=== PATIENT | female | born 1990 ===

== ENCOUNTER 2025-05-15 00:27 | Observation (INO) | payer OTHER, SELFPAY ==
[2025-05-15 00:46] VITALS: BP 130/67; PULSE 85; RESP 16; TEMP 36.2; O2SAT 97; BMI 32.9
--- NOTE | 2025-05-15 01:00 | DI.US.S_ITS ---
PROCEDURE: US ABDOMEN LIMITED INDICATIONS: EPIGASTRIC AND RIGHT UPPER QUADRANT POSTPRANDIAL PAIN TECHNIQUE: Real-time focused scanning was performed of the abdomen, with image documentation. COMPARISON: None. FINDINGS: Liver measures 14 centimeters. Gallstones are present. Non mobile stone seen at the neck. Sonographic Lopez sign is present. CBD is not well seen. IMPRESSION: Cholelithiasis with sonographic Lopez sign suspicious for cholecystitis. Agree with preliminary report. Dictated by: Ashok Gallegos M.D. on 05/15/2025 at 8:14 Approved by: Ashok Gallegos M.D. on 05/15/2025 at 8:15
--- NOTE | 2025-05-15 01:01 | ED.ABDPAIN ---
HPI - Abdominal Pain General Chief Complaint: Abdominal Pain Stated Complaint: Severe Stomach Acid, pain Time Seen by Provider: 05/15/25 01:00 Source: patient Mode of arrival: Ambulatory Limitations: language barrier (Logistic Manager, ASL) History of Present Illness HPI narrative: 34-year-old female no reported medical issues patient is deaf presents with complaint of epigastric pain that started suddenly after eating food including wings. Patient has had similar symptoms in the past after eating or drinking but not as intense. Denies fevers. She has had some nausea and vomiting. She denies any diarrhea or constipation. States pain goes the epigastric area comes around the right side and towards her back. Denies any dysuria but has had some frequency no urgency. No reports of vaginal bleeding or discharge. Patient states no daily medications. No prior surgeries. No known drug allergies. No tobacco, occasional alcohol, no recreational drugs. Related Data Allergies Allergy/AdvReac Type Severity Reaction Status Date / Time No Known Drug Allergies Allergy Verified 05/15/25 00:52 Review of Systems Review of Systems ROS Unobtainable: All systems reviewed & are unremarkable except as noted in HPI and below Patient History Social History Smoking Status: Never smoker Smoking Status: Never smoker Alcohol type: beer Exam Narrative Exam Narrative: GENERAL: Alert and oriented x three, female in moderate distress HEENT: Head normocephalic, atraumatic, EOMI, pupils reactive, face symmetric, moist mucous membranes NECK: Supple, full range of motion CARDIOVASCULAR: Regular rate and rhythm without murmurs, rubs or gallops. RESPIRATORY: Breath sounds equal bilaterally, no wheezes rales or rhonchi. ABDOMEN: Soft, positive for epigastric and right upper quadrant tenderness, Normoactive bowel sounds all 4 quadrants. No guarding or rebound, rigidity, no mass, no pulsatile mass or bruit : No CVA tenderness EXTREMITIES: Normal range of motion, no clubbing or edema. Neurovascularly intact NEUROLOGICAL: Cranial nerves II through XII grossly intact. Moving all extremities SKIN: Warm, dry, no petechiae, no rashes or lesions. Initial Vital Signs Initial Vital Signs: Vital Signs Temperature 97.2 F L 05/15/25 00:46 Pulse Rate 85 05/15/25 00:46 Respiratory Rate 16 05/15/25 00:46 Blood Pressure 130/67 05/15/25 00:46 Pulse Oximetry 97 05/15/25 00:46 Oxygen Delivery Method Room Air 05/15/25 00:46 Course Orders Ordered: ED Orders 05/15/25 01:00 US abdomen limited Stat 05/15/25 01:25 Complete Blood Count AUTO DIFF Stat Comprehensive Metabolic Panel Stat Lipase Stat Sodium Chloride (Normal Saline 0.9%) 1,000 mls @ 150 mls/hr IV CONT AMALIA Last Admin: 05/15/25 04:42 Dose: 150 mls/hr Documented By: NIMA Ketorolac Tromethamine (Ketorolac 30 Mg/Ml Vial) 15 mg IV Q8H PRN PRN Reason: Pain, Moderate (4-6) Stop: 05/20/25 02:39 Morphine Sulfate (Morphine 4 Mg/Ml Inj) 4 mg IV Q6HR PRN PRN Reason: Pain, Severe (7-10) Ondansetron HCl (Ondansetron 4 Mg/2 Ml Inj) 4 mg IV NOW PRN PRN Reason: Nausea And Vomiting Last Admin: 05/15/25 01:31 Dose: 4 mg Documented By: NIMA Ondansetron HCl (Ondansetron 4 Mg Odt) 4 mg PO NOW PRN PRN Reason: Nausea And Vomiting Discontinued Medications Ceftriaxone Sodium 1,000 mg/ (Sodium Chloride) 100 mls @ 200 mls/hr IV NOW ONE Stop: 05/15/25 02:39 Last Infusion: 05/15/25 05:28 Dose: Infused Documented By: Admin: 05/15/25 04:42 Dose: 200 mls/hr Documented By: NIMA Ketorolac Tromethamine (Ketorolac 30 Mg/Ml Vial) 15 mg IV NOW ONE Stop: 05/15/25 00:55 Last Admin: 05/15/25 01:31 Dose: 15 mg Documented By: NIMA Vital Signs Vital signs: Vital Signs - 8 hr 05/15/25 00:46 Temperature 97.2 F L Pulse Rate 85 Respiratory Rate 16 Blood Pressure 130/67 Pulse Oximetry 97 Oxygen Delivery Method Room Air MDM - Abdominal Pain Lab Data 05/15/25 01:25 05/15/25 01:25 Labs: Lab Results 05/15/25 Range/Units 01:25 WBC 10.0 (4.5-11.0) X10^3/uL RBC 4.64 (4.0-5.2) X10^6/uL Hgb 13.9 (12.0-16.0) g/dL Hct 40.8 (36-46) % MCV 87.9 (80-100) fL MCH 30.1 (26-34) PG MCHC 34.2 (30-36) % RDW 12.7 (11.6-14.8) % Plt Count 375 (150-400) X10^3/uL Neut % (Auto) 74.5 (50-75) % Lymph % (Auto) 19.5 L (25-40) % [place] % (Auto) 4.8 (3-14) % Eos % (Auto) 0.8 L (2-4) % Baso % (Auto) 0.4 (0-2) % Neut # (Auto) 7400 H (8258-3601) /uL Lymph # (Auto) 1900 (7835-2462) /uL [place] # (Auto) 500 (0-900) /uL Eos # (Auto) 100 (0-450) /uL Baso # (Auto) 0 (0-100) /uL Sodium 135 L (137-145) mmol/L Potassium 3.9 (3.4-5.1) mmol/L Chloride 98 (98-107) mmol/L Carbon Dioxide 27 (22-32) mmol/L BUN 16 (7-17) mg/dL Creatinine 0.74 (0.52-1.04) mg/dL Estimated GFR > 60 (>60) mL/min BUN/Creatinine Ratio 21.6 (6-22) Glucose 131 H (70-99) mg/dL Calcium 9.2 (8.4-10.2) mg/dL Total Bilirubin 0.9 (0.2-1.3) mg/dL AST 32 (14-36) IU/L ALT 29 (<35) IU/L Alkaline Phosphatase 73 (38-126) U/L Total Protein 8.3 H (6.3-8.2) g/dL Albumin 4.7 (3.5-5.0) g/dL Globulin 3.6 (1.7-4.1) g/dL Albumin/Globulin Ratio 1.3 (1.0-2.8) Lipase 56 (23-300) U/L Point of care testing: Point of Care Testing Test Results Negative Urine Dip Bedside Urine Glucose Negative Bedside Urine Bilirubin - Negative Bedside Urine Ketone +/- 5 Urine Specific [place] 1.020 Bedside Urine Occult Blood +++ Bedside Urine pH 6.0 Bedside Urine Protein - Negative Bedside Urine Urobilinogen - Negative Bedside Urine Nitrite - Negative Bedside Urine Leukocytes - Negative Esterase MDM Narrative Medical decision making narrative: Labs labs show normal white count, hemoglobin and platelets, chemistries shows sodium 135 electrolytes otherwise appropriate glucose is 131 bilirubin, AST ALT, alk-phos and lipase are normal. Ultrasound shows gallbladder distention with cholelithiasis with a nonmobile gallstone in the neck of gallbladder positive sonographic Lopez's gallbladder wall measuring 3 mm upper limits of normal. No pericholecystic fluid findings are highly suspicious for acute cholecystitis. Urine has a for blood. Negative for Patient had Toradol and Zofran, Rocephin and fluids. Spoke with Dr. Panchal, general surgery accepts with the plan for OR later today. Patient updated with the per diem interpreter pain has improved at this time. She is comfortable with the plan. Discharge Plan Departure Patient Disposition: Admitted as Observation Clinical Impression: Cholelithiasis with acute cholecystitis Admit Date/Time: 05/15/25 02:41 Admit Provider: Jerome Panchal
[2025-05-15] MEDS: ONDANSETRON 4 MG/2 ML INJ IV (01:31)
[2025-05-15] MEDS: KETOROLAC 30 MG/ML VIAL 15 MG IV (01:31)
[2025-05-15 01:36] LABS: Add Manual Diff / Slide Review NO; Hematocrit 40.8 % (36-46); Hemoglobin 13.9 g/dL (12.0-16.0); Lymphocytes Absolute Auto 1900 /uL (1100-4500); Mean Corpuscular HGB Conc 34.2 % (30-36); Mean Corpuscular Hemoglobin 30.1 PG (26-34); Mean Corpuscular Volume 87.9 fL (80-100); Platelet Count 375 X10^3/uL (150-400)
[2025-05-15 01:51] LABS: Alanine Aminotransferase 29 IU/L (<35); Albumin 4.7 g/dL (3.5-5.0); Albumin Globulin Ratio 1.3 (1.0-2.8); Alkaline Phosphatase 73 U/L (38-126); Blood Urea Nitrogen 16 mg/dL (7-17); Calcium 9.2 mg/dL (8.4-10.2); Carbon Dioxide 27 mmol/L (22-32); Chloride 98 mmol/L (98-107); Estimated Glomerular Filt Rate > 60 mL/min (>60); Globulin 3.6 g/dL (1.7-4.1); Glucose 131 mg/dL (70-99); HEMOLYSIS < 15 (0-50); Lipase 56 U/L (23-300); Potassium 3.9 mmol/L (3.4-5.1); Sodium 135 mmol/L (137-145); Total Protein 8.3 g/dL (6.3-8.2)
[2025-05-15 04:23] VITALS: PULSE 85; O2SAT 99
[2025-05-15 04:27] VITALS: BP 106/61; PULSE 94; O2SAT 97
[2025-05-15 04:30] VITALS: PULSE 88; O2SAT 97
[2025-05-15] MEDS: SODIUM CHLORIDE 0.9% 1,000 ML 150 ML IV (04:42)
--- NOTE | 2025-05-15 07:45 | PC.NURSE ---
pt resting eyes closed respirations even no current needs noted
--- NOTE | 2025-05-15 08:36 | P.HP_ITS ---
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 Patient presents with epigastric pain which started on 05/14/2025 at approximately 5:30 p.m.. The patient states she was drinking beer and eating hot wings when she developed severe abdominal cramping with radiation back to her back. The patient has a history of GERD and reflux. She took multiple doses of Pepto-Bismol without any relief and came in the emergency room. The patient did have nausea vomiting denies any hematemesis. She has worked up in the emergency room underwent an ultrasound which shows a single large stone impacted in the neck of the gallbladder gallbladder wall was 0.28 cm normal common bile duct and a positive Lopez's sign. She states the pain when it started was 8 on a scale of 0-10 is currently a 0. The patient's admitting laboratory shows WBC of 10.0 hemoglobin is 13.9 hematocrit is 40.8 platelets are 375,000 sodium is 135 potassium 3.9 chloride 98 bicarb is 27 BUN 16 creatinine is 0.74 random blood sugar is 131 normal LFTs lipase is 56 test is negative. Discussed the findings through the beading machine operator with patient procedure risks and complications were fully explained the patient had been admitted to Dr. Panchal but she refuses surgery at this time she desires to go home and talk to family and if she has any further symptoms or problems would return to the ER or go the surgical offices. All questions were answered to patient's satisfaction through beading machine operator. But patient refuses surgery at this time. Allergies: NKDA Medications: Pepto-Bismol no recorded medicines are on the patient's admission sheet Past medical history: 2 para 1 miscarriage 1, history of deafness only signs. Patient denies any other heart lungs digestive musculoskeletal neurological seizure disorder psychiatric problems risks are Infectious diseases HIV or AIDS. 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 pulse 94 respirations 16 BP is 106/61 SaO2 is 97% on room air. Patient is 5 ft 2 in tall 180 lb Head is normocephalic eyes PERRLA EOMI is intact nares are clear septum is midline oropharyngeal cavity is in moderate repair patient is deaf. Heart regular rate and rhythm without murmurs. Lungs are clear to auscultation no rales rhonchi or wheezes noted. Abdomen is obese soft nondistended negative David's colons great Malin's questionable Lopez's no rebound or guarding most discomfort is in the epigastrium. No masses or peritoneal signs. Musculoskeletal good muscle tone and strength equal bilaterally no gross deficits are elicited. [facility] Social History Smoking Status: Never smoker Meds Home Medications and Allergies Allergies Allergy/AdvReac Type Severity Reaction Status Date / Time No Known Drug Allergies Allergy Verified 05/15/25 00:52 Exam Vital Signs (past 8 hours): - 05/15/25 00:46 05/15/25 04:27 Temperature 97.2 F L Pulse Rate 85 94 H Respiratory Rate 16 Blood Pressure 130/67 106/61 Pulse Oximetry 97 97 Oxygen Delivery Method Room Air Room Air Oxygen Delivery Method Room Air Objective Labs 05/15/25 01:25 05/15/25 01:25 Labs: Laboratory Results - last 24 hr 05/15/25 01:25 WBC 10.0 RBC 4.64 Hgb 13.9 Hct 40.8 MCV 87.9 MCH 30.1 MCHC 34.2 RDW 12.7 Plt Count 375 Neut % (Auto) 74.5 Lymph % (Auto) 19.5 L [place] % (Auto) 4.8 Eos % (Auto) 0.8 L Baso % (Auto) 0.4 Neut # (Auto) 7400 H Lymph # (Auto) 1900 [place] # (Auto) 500 Eos # (Auto) 100 Baso # (Auto) 0 Sodium 135 L Potassium 3.9 Chloride 98 Carbon Dioxide 27 BUN 16 Creatinine 0.74 Estimated GFR > 60 BUN/Creatinine Ratio 21.6 Glucose 131 H Calcium 9.2 Total Bilirubin 0.9 AST 32 ALT 29 Alkaline Phosphatase 73 Total Protein 8.3 H Albumin 4.7 Globulin 3.6 Albumin/Globulin Ratio 1.3 Lipase 56 Assessment & Plan Assessment & Plan narrative: Impression: Epigastric right upper quadrant pain with ultrasound showing stone impacted in the gallbladder neck with gallbladder wall 0.28 cm no pericholecystic fluid positive Lopez sign. Normal LFTs and lipase Deafness uses sign language only Plan: Discussed with patient the findings she has been admitted to Dr. Abdulkadir monae but in discussing laparoscopic cholecystectomy procedure risks and complications were fully drain through beading machine operator she said she would like to go home and talk to her family and not have surgery at this time. She was discussed if she has any reoccurrence is to return for re-evaluation but she refuses surgery at this time all questions were answered to the patient's satisfaction through knitting machine operator automatic. Patient will be discharged follow-up if any further problems questions or concerns. Time-Based Coding :: [TOTAL MINUTES] spent with patient and on the chart (including review of chart, obtaining history, exam, reviewing outside data, placing orders, documenting exam and treatment plan, and counseling patient) on [DATE]. PROFEE Commercial Driver'S License Driver Document charge(s): Yes
--- NOTE | 2025-05-15 08:45 | P.DS_ITS ---
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 Patient presents with epigastric pain which started on 05/14/2025 at approximately 5:30 p.m.. The patient states she was drinking beer and eating hot wings when she developed severe abdominal cramping with radiation back to her back. The patient has a history of GERD and reflux. She took multiple doses of Pepto-Bismol without any relief and came in the emergency room. The patient did have nausea vomiting denies any hematemesis. She has worked up in the emergency room underwent an ultrasound which shows a single large stone impacted in the neck of the gallbladder gallbladder wall was 0.28 cm normal common bile duct and a positive Lopez's sign. She states the pain when it started was 8 on a scale of 0-10 is currently a 0. The patient's admitting laboratory shows WBC of 10.0 hemoglobin is 13.9 hematocrit is 40.8 platelets are 375,000 sodium is 135 potassium 3.9 chloride 98 bicarb is 27 BUN 16 creatinine is 0.74 random blood sugar is 131 normal LFTs lipase is 56 test is negative. Discussed the findings through the court interpreter with patient procedure risks and complications were fully explained the patient had been admitted to Dr. Panchal but she refuses surgery at this time she desires to go home and talk to family and if she has any further symptoms or problems would return to the ER or go the surgical offices. All questions were answered to patient's satisfaction through court interpreter. But patient refuses surgery at this time. Allergies: NKDA Medications: Pepto-Bismol no recorded medicines are on the patient's admission sheet Past medical history: 2 para 1 miscarriage 1, history of deafness only signs. Patient denies any other heart lungs digestive musculoskeletal neurological seizure disorder psychiatric problems risks are Infectious diseases HIV or AIDS. 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 pulse 94 respirations 16 BP is 106/61 SaO2 is 97% on room air. Patient is 5 ft 2 in tall 180 lb Head is normocephalic eyes PERRLA EOMI is intact nares are clear septum is midline oropharyngeal cavity is in moderate repair patient is deaf. Heart regular rate and rhythm without murmurs. Lungs are clear to auscultation no rales rhonchi or wheezes noted. Abdomen is obese soft nondistended negative David's colons great Malin's questionable Lopez's no rebound or guarding most discomfort is in the epigastrium. No masses or peritoneal signs. Musculoskeletal good muscle tone and strength equal bilaterally no gross deficits are elicited. Discharge Providers Provider Date of admission: 05/15/25 02:41 Discharge Date: 05/15/25 Discharge provider: Mando Mascorro DO Summary Hospital Course Discharge Diagnosis: Cholecystitis cholelithiasis Hospital Course: Patient came in the emergency room with epigastric pain with radiation back to the back scale of 8 on a 0-10 patient had nausea vomiting without any hematemesis. Patient has worked up in the emergency room was noted to have a large stone impacted in the neck of the gallbladder with slight gallbladder wall thickening but no pericholecystic fluid. The patient is deaf uses tattoo designer was done through a [employer] system. Discussed with patient laparoscopic cholecystectomy procedure risks and complications were fully explained in detail with the court interpreter and patient refuses surgery at this time she desires to go home and talk with her family if she has any further problems is returned to the emergency room or go the surgical offices we will give number for follow-up. All questions were answered to patient's satisfaction but she refuses surgery at this time and desires to go home. Status at Discharge Cognitive/behavioral status at discharge: oriented Functional status at discharge: independent ambulation Time Spent with Patient Time spent: Greater than 30 minutes Exam Vital Signs (past 8 hours): - 05/15/25 00:46 05/15/25 04:27 Temperature 97.2 F L Pulse Rate 85 94 H Respiratory Rate 16 Blood Pressure 130/67 106/61 Pulse Oximetry 97 97 Oxygen Delivery Method Room Air Room Air Oxygen Delivery Method Room Air Narrative Exam Narrative: Head is normocephalic eyes PERRLA EOMI is intact nares are clear septum midline oropharyngeal cavity is moderate repair heart regular rate and rhythm without murmurs lungs are clear to auscultation abdomen is obese soft nondistended negative David's Garcia Hernandez Malin's small amount of right upper quadrant tenderness with McBurney's no rebound or guarding or palpable masses. Musculoskeletal good muscle tone and strength equal bilaterally. Patient states through court interpreter that her abdominal pain is resolved. Const General: cooperative and comfortable Objective Labs 05/15/25 01:25 05/15/25 01:25 Labs: Laboratory Results - last 24 hr 05/15/25 01:25 WBC 10.0 RBC 4.64 Hgb 13.9 Hct 40.8 MCV 87.9 MCH 30.1 MCHC 34.2 RDW 12.7 Plt Count 375 Neut % (Auto) 74.5 Lymph % (Auto) 19.5 L [place] % (Auto) 4.8 Eos % (Auto) 0.8 L Baso % (Auto) 0.4 Neut # (Auto) 7400 H Lymph # (Auto) 1900 [place] # (Auto) 500 Eos # (Auto) 100 Baso # (Auto) 0 Sodium 135 L Potassium 3.9 Chloride 98 Carbon Dioxide 27 BUN 16 Creatinine 0.74 Estimated GFR > 60 BUN/Creatinine Ratio 21.6 Glucose 131 H Calcium 9.2 Total Bilirubin 0.9 AST 32 ALT 29 Alkaline Phosphatase 73 Total Protein 8.3 H Albumin 4.7 Globulin 3.6 Albumin/Globulin Ratio 1.3 Lipase 56 PFSH Social History Smoking Status: Never smoker Discharge Plan Discharge Plan Patient Disposition: Home Provider Discharge Comment: Patient desires no medications Visit Report/Discharge Packet Instructions: DI for Gallstones Stand Alone Forms: Patient Portal/API, Stroke Signs & Symptoms Discharge Data Attending Provider: Jerome Panchal Admit Date/Time: 05/15/25 02:41 [facility] PROFEE Charge Codes Discharge inpatient/observation: [id number] (Patient desires to be discharged refuses surgery at this time we will follow up if any further problems.)
[2025-05-15 08:51] VITALS: BP 114/74; PULSE 83; O2SAT 97
== END 2025-05-15 11:30 | disposition home or self-care (01) ==
LOC: ED 02:41 → AC 02:41
PROVIDERS: Emergency Medicine; Admitting Provider Surgery; Emergency Provider Surgery; Visit Provider Surgery
DX: K80.10 Calculus of gallbladder with chronic cholecystitis without obstruction (principal); H91.93 Unspecified hearing loss, bilateral
CPT/HCPCS: 36415; 76705; 80053; 81003; 81025; 83690; 85025; 96365; 96375; 99222; 99284; G0378; J0696; J1885; J2405; J7030; J7050